=== PATIENT | female | born 2000 | race Hispanic/Latino ===

== ENCOUNTER 2022-01-22 07:24 | Emergency (ER) | payer BC, MEDICAID, OTHER ==
[~2022-01-22] VITALS: Ht 157.5 cm; Wt 66.7 kg
[2022-01-22 07:29] VITALS: BP 118/80
[2022-01-22] MEDS ORDERED: DEXAMETHASONE SOD PHOSPHATE 4 MG/ML 1ML VIAL IM ONE (08:00)
[2022-01-22] MEDS ORDERED: LORA10TA7 PO (08:37)
[2022-01-22] MEDS ORDERED: PRED5SOL PO (08:37)
== END 2022-01-22 08:44 | disposition home or self-care (01) ==
LOC: EDH 07:24
DX: L20.84 Intrinsic (allergic) eczema (principal); Z79.52 Long term (current) use of systemic steroids
CPT/HCPCS: 81025; 96372; 99284; J1100

== ENCOUNTER 2025-07-24 02:21 | Emergency (ER) | payer SELFPAY ==
[~2025-07-24] VITALS: Ht 160 cm; Wt 79.4 kg
[~2025-07-24 02:21] MED LIST: LORA10TA7 PO; PRED5SOL PO
--- NOTE | 2025-07-24 02:23 | NUR ---
PT TAKEN TO RESTROOM FOR COLLECTION
--- NOTE | 2025-07-24 02:23 | NUR ---
UA CUP PROVIDED
--- NOTE | 2025-07-24 02:24 | NUR ---
REPORT TO JULITO QURESHI
[2025-07-24 02:49] LABS: APPEARANCE,URINE CLEAR (CLEAR); GLUCOSE, URINE (UA) NEGATIVE (NEGATIVE); LEUKOCYTE ESTERASE ,URINE 75 Leu/uL (NEGATIVE); NITRATE,URINE NEGATIVE (NEGATIVE); OCCULT BLOOD,URINE NEGATIVE (NEGATIVE)
[2025-07-24 02:50] LABS: ADD UA MICROSCOPIC YES
[2025-07-24 02:51] LABS: HCG,QUALITATIVE URINE NEGATIVE (NEGATIVE)
--- NOTE | 2025-07-24 03:23 | ERN ---
ED Note History of Present Illness Stated Complaint: FREQUENT URINATION Chief Complaint: Urinary Frequency Time Seen by MD: 03:06 Dictation: This is a 25-year-old female who presented to the emergency room with complaints of increased urinary frequency for about 24 hours and she wanted to make sure that she does not have a UTI and going to sepsis from it. She said she read it somewhere. She stated that periodically she has increased frequency and UTIs. Last few days patient has been drinking a lot of water and urinating more. No f ever chills or rigors. No dysuria hematuria or pyuria. No suprapubic pain or flank pain. No history of any . She is in a monogamous relationship with her and is sexually active. Last menstrual period was July 05 2025 Temperature 97.2 pulse 68 respirations 16 blood pressure 124/80 with a pulse oximetry of 99% on room air Allergies: Coded Allergies: No Known Allergies (Unverified Allergy, Unknown, 01/22/22) Home Meds Active Scripts Prednisone (Prednisone) 5 Mg/5 Ml Solution, 5 MG PO BID for 7 Days, #14 ML Prov:DIONICIO COOPER MD 01/22/22 Loratadine (Loratadine) 10 Mg Tablet, 10 MG PO DAILY for 30 Days, #30 TAB Prov:DIONICIO COOPER MD 01/22/22 Past Medical History Past Medical History: No Pertinent History Surgical History: None Family History: Negative Social History: Negative LMP: Jul 05, 2025 RN Note Reviewed/Agreed w/PFSH: Yes Review of System Dictation Constitutional: Negative for fever,chills, and weight loss Eyes: Negative for injury, pain,redness, and discharge ENT: Negative for injury,pain or swelling Cardiovascular: Negative for chest pain, palpitations, and edema Respiratory: Negative for shortness of breath, cough, and wheezing, Abdomen/GI: Negative for abdominal pain, nausea, vomiting, diarrhea, and constipation Back: Negative for injury and pain : Negative for injury, bleeding and discharge positive for increased frequency MS/Extremity: Negative for injury and deformity Skin: Negative for rash, and discoloration Neuro: Negative for headache, weakness, numbness, tingling, and seizure Psych: Negative for suicide ideation, homicidal ideation, and hallucinations Initial Vital Sign VS Vital Signs Date Time Temp Pulse Resp B/P (MAP) Pulse Ox O2 Delivery O2 Flow Rate FiO2 07/24/25 02:23 97.2 68 16 124/80 99 Room Air Physical Exam Dictation General: awake, alert, NAD Head/Face: Normocephalic, atraumatic Eyes: PERRL, EOMI, vision at baseline ENT: oral cavity clear, TMs clear, no signs of infection Neck: Trachea midline, supple, no nuchal rigidity Cardiovascular: RRR, normal S1/S2, No MRGs, no JVD Respiratory: CTAB, no respiratory distress, No rales or wheezes Abdomen: Soft, non-tender, non-distended, normal bowel sounds, no guarding or re bound. Skin: Warm, dry, normal turgor, no rash MS/Extremity: Pulses equal, no cyanosis, neurovascular intact, FROM Neuro: COAx4, GCS 15, strength 5/5, CN 2-12 intact, normal cerebellar exam, normal gait, Psych: Normal behavior, mood, and affect normal Extremities-trace edema without any palpable cords, Homans sign is negative Results (Laboratory/Radiology) Laboratory/Radiology Laboratory Tests Test 07/24/25 02:36 Urine Color YELLOW (YELLOW) Urine Appearance CLEAR (CLEAR) Urine pH 6.0 (5.0-8.0) Urine Specific [place] 1.039 (1.001-1.031) Urine Protein 20 mg/dL (NEGATIVE) H Urine Glucose (UA) NEGATIVE mg/dL (NEGATIVE) Urine Ketones 5 mg/dL (NEGATIVE) H Urine Occult Blood NEGATIVE (NEGATIVE) Urine Nitrate NEGATIVE (NEGATIVE) Urine Bilirubin NEGATIVE mg/dL (NEGATIVE) Urine Urobilinogen 0.2 mg/dL (0.2-1.0) Urine Leukocyte Esterase 75 Alyce/uL (NEGATIVE) H Urine RBC 0-1 /HPF (0-1) Urine WBC 2-5 /HPF (0-1) H Urine Squamous Epithelial Cells 2-5 /HPF (0-2) Urine Bacteria Few /HPF (None Seen) Urine HCG, Qualitative NEGATIVE (NEGATIVE) Labs Reviewed?: Yes ED Course ED Course Orders Procedure Category Date Status Time Urinalysis Profile LAB 07/24/25 Complete 02:42 ,Urine Test LAB 07/24/25 Complete 02:42 Culture Urine JOSEPH 07/24/25 In Process 02:50 Vital Signs Date Time Temp Pulse Resp B/P (MAP) Pulse Ox O2 Delivery O2 Flow Rate FiO2 07/24/25 02:23 97.2 68 16 124/80 99 Room Air Medical Decision Making MDM Differential diagnosis: UTI, increased water intake, osmotic diuresis from hyperglycemia, alcohol intake, increased ADH This is a 25-year-old female who presented to the emergency room with complaints of increased urinary frequency for about 24 hours and she wanted to make sure that she does not have a UTI and going to sepsis from it. She said she read it somewhere. She stated that periodically she has increased frequency and UTIs. Last few days patient has been drinking a lot of water and urinating more. No fever chills or rigors. No dysuria hematuria or pyuria. No suprapubic pain or flank pain. No history of any . She is in a monogamous relationship with her and is sexually active. Last menstrual period was July 05 2025 Temperature 97.2 pulse 68 respirations 16 blood pressure 124/80 with a pulse oximetry of 99% on room air Labs reviewed urinalysis showed a leuko esterase of 75 but WBCs are 2-5 no evidence of any nitrates. Urine test is negative Explained to the patient that simply having urinary frequency does not mean she has a UTI. She has no other symptoms clinically significant to reflect cystitis or pyelonephritis. Urinalysis findings are not indicative of an infection and there is no role for antibiotics at this time. She felt reassured. Discharge to follow up with her primary care physician Rationale: Tests considered and ordered secondary to shared decision making include: Previous outside records reviewed: Old ER visits. Risk of complication and/or morbidity or mortality of patient management: None Medications-Per medication reconciliation Need for hospitalization: Patient does not meet criteria for hospitalization. Need for emergency major/minor surgery: No There are no social concerns with this patient. Prescription drug management Prescriptions will include symptomatic care Patient's prior external medical records from other ER visits were reviewed by me as indicated. Prior testing and results from previous visits were reviewed. Prior tests were taken into account with medical decision making and resource utilization, independent historian/historians were used to obtain complete m edical history. I independently interpreted the test that were performed, results were reviewed by me and considered findings on radiology if ordered. Medical management and examination interpretation discussions were had by me with other qualified healthcare professionals as indicated for the patient's care. Problem List Problem List: (1) Increased urinary frequency DX & DISP Disposition: Discharge Departure Impression: Primary Impression: Increased urinary frequency Condition: Stable Additional Instructions: Patient and the caregiver have been informed of all the diagnostic tests and the imaging conducted during the today's visit to the emergency room and has verbalized understanding of the results I have personally reviewed and interpreted all diagnostic exams performed here in the ER today as well as the vital signs documented by the nursing staff. The patient is now being discharged to home and should follow up with the primary care physician or the specialist as directed by the ER staff. Follow-up with primary care provider in 1 to 2 days. Take medications as directed here in the emergency room. Okay to continue home medications unless otherwise discussed during your visit in the emergency room today. Return to your nearest emergency room if symptoms worsen or if there is no improvement. Call 911 if you need immediate assistance. Take Tylenol or Motrin [id number] as needed and if no contraindications are present. Increase oral hydration. A wound culture or urine culture was ordered here in the emergency room department please follow-up with primary care provider and advise them to get repeat ports from our facility. If you had any Andrey wrap/splints that were applied here, please do not remove them until you see your primary care or specialty. Referrals: RICHA HOLLAND (PCP) VALDO HWANG MD Jul 24, 2025 03:23
[2025-07-24 04:01] VITALS: BP 121/68; PULSE 28; RESP 18; TEMP 97.8; O2SAT 100
== END 2025-07-24 04:02 | disposition home or self-care (01) ==
LOC: EDH 02:21
DX: R35.0 Frequency of micturition (principal); Z79.52 Long term (current) use of systemic steroids
CPT/HCPCS: 81001; 81025; 87086; 99283